=== PATIENT | female | born 1955 | race Caucasian/White ===

== ENCOUNTER 2018-07-07 15:13 | Inpatient (IN) | payer MEDICAID, OTHER ==
[~2018-07-07] VITALS: Ht 162.6 cm; Wt 91.0 kg
[~2018-07-07 15:13] MED LIST: NOCURR
[2018-07-07] MEDS ORDERED: PROP10TA72 PO (15:26)
[2018-07-07] MEDS ORDERED: PANT20TA PO (15:26)
[2018-07-07] MEDS ORDERED: INSU100C14 SQ (15:26)
[2018-07-07] MEDS ORDERED: MECL12.585 PO (15:26)
[2018-07-07] MEDS ORDERED: CITA10SO PO (15:26)
[2018-07-07] MEDS ORDERED: FERR324T4 PO (15:26)
[2018-07-07] MEDS ORDERED: VIT1TABL95 PO (15:26)
[2018-07-07 16:39] LABS: BASOPHILS % (AUTO) 0.7 % (0.0-2.0); EOSINOPHILS % (AUTO) 2.3 % (1.0-6.0); HEMATOCRIT 30.5 % (36-46); HEMOGLOBIN 10.3 g/dL (12.0-16.0); LYMPHOCYTES # (AUTO) 0.4 K/uL (1.0-4.8); LYMPHOCYTES % (AUTO) 25.3 % (22.0-44.0); MEAN CORPUSCULAR HEMOGLOBIN 31.2 pg (26.0-34.0); MEAN CORPUSCULAR HGB CONC 33.7 G/dL (31.0-37.0); MEAN CORPUSCULAR VOLUME 93 fL (80-100); MONOCYTES # (AUTO) 0.1 K/uL (0.1-1.0); NEUTROPHILS # (AUTO) 0.9 K/uL (1.8-7.7); NEUTROPHILS % (AUTO) 63.7 % (40.0-70.0); RED CELL DISTRIBUTION WIDTH 15.9 % (11.5-14.5)
[2018-07-07 16:40] LABS: ANION GAP 6 mmol/L (8-16); CALCIUM, TOTAL 8.7 mg/dL (8.8-10.5); CARBON DIOXIDE 25 mmol/L (22-29); CHLORIDE 107 mmol/L (98-107); CREATININE 0.72 mg/dL (0.60-1.30); GLOMERULAR FILTR. RATE CALC > 60 mL/min (>60); GLUCOSE,RANDOM 137 mg/dL (70-110); POTASSIUM 3.7 mmol/L (3.5-5.1); SODIUM SERUM 138 mmol/L (136-145); UREA NITROGEN, BLOOD 6 mg/dL (7-18)
[2018-07-07 16:44] LABS: ALANINE AMINOTRANSFERASE 25 U/L (12-78); ALBUMIN 2.5 g/dL (3.4-5.0); ALKALINE PHOSPHATASE 232 U/L (46-116); ASPARTATE AMINOTRANSFERASE 29 U/L (15-37); BILIRUBIN,TOTAL 2.2 mg/dL (0.1-1.0); LIPASE 179 U/L (73-393); TOTAL PROTEIN, SERUM 6.8 g/dL (6.4-8.2)
[2018-07-07 17:17] LABS: PLATELET COUNT (AUTO) 25 K/uL (150-450)
[2018-07-07 18:58] LABS: APPEARANCE,URINE CLOUDY (CLEAR); BILIRUBIN,URINE NEGATIVE (NEGATIVE); GLUCOSE, URINE (UA) NEGATIVE (NEGATIVE); KETONES,URINE NEGATIVE (NEGATIVE); LEUKOCYTE ESTERASE ,URINE LARGE (NEGATIVE); NITRATE,URINE NEGATIVE (NEGATIVE); OCCULT BLOOD,URINE LARGE (NEGATIVE); PROTEIN,URINE NEGATIVE (NEGATIVE)
[2018-07-07 19:07] LABS: BACTERIA,URINE Moderate /HPF (None Seen); SQUAMOUS EPITHELIAL CELL,UR Many /LPF (None Seen)
[2018-07-07 19:10] LABS: INR 1.6 (0.9-1.1); PROTHROMBIN TIME 16.2 SEC (9.4-11.6)
[2018-07-07] MEDS ORDERED: CefTRIAXone SODIUM 1 GM in DEXTROSE 5%-WATER 10 ML IV ONE (22:15)
[2018-07-07] MEDS ORDERED: LEVOFLOXACIN 500 MG/D5% WATER 100 ML IV ONE (22:15)
[2018-07-07] MEDS ORDERED: 0.9% SODIUM CHLORIDE 10 ML SYRINGE IVP PRN (23:00)
[2018-07-07] MEDS ORDERED: ONDANSETRON HCL 4 MG/2 ML VIAL IVP PRN ×3 (23:00→23:30)
[2018-07-07] MEDS ORDERED: ACETAMINOPHEN 325 MG TABLET PO PRN ×3 (23:00→23:30)
[2018-07-07] MEDS ORDERED: [UNRECOGNIZED DRUG - OTHER] PO SCH ×2 (23:15→23:30)
[2018-07-07] MEDS ORDERED: INSULIN LISPRO 100 UNITS/ML SQ PRN (23:15)
[2018-07-07] MEDS ORDERED: DEXTROSE 50%-WATER 25 GM/50 ML SYRINGE IVP PRN ×2 (23:15→23:30)
[2018-07-07] MEDS ORDERED: HYDROCODONE/ACETAMINOPHEN 5-325 MG TABLET PO PRN (23:15)
[2018-07-07] MEDS ORDERED: BISACODYL 10 MG RECTAL RECTAL SUPPOSITORY PR PRN ×2 (23:15→23:30)
[2018-07-07] MEDS ORDERED: MORPHINE SULFATE 2 MG/ML SYRINGE IVP PRN ×2 (23:15→23:30)
[2018-07-07] MEDS ORDERED: MAGNESIUM HYDROXIDE SUSPENSION 30 ML UDCUP PO PRN ×2 (23:15→23:30)
[2018-07-07] MEDS ORDERED: ZOLPIDEM TARTRATE 5 MG TABLET PO PRN ×2 (23:15→23:30)
[2018-07-07 23:17] VITALS: BP 128/64
[2018-07-07] MEDS: HEPARIN SODIUM,PORCINE 5,000 UNITS/ML VIAL SQ SCH (23:54)
[2018-07-08] MEDS ORDERED: HEPARIN SODIUM,PORCINE 5,000 UNITS/ML VIAL SQ SCH
[2018-07-08] MEDS ORDERED: PNEUMOCOCCAL VACCINE POLYVALENT 0.5 ML VIAL [PPSV23] IM ONE (01:45)
[2018-07-08 05:23] VITALS: BP 116/57
[2018-07-08] MEDS: HYDROCODONE/ACETAMINOPHEN 5-325 MG TABLET PO PRN ×3 (06:08→23:27)
[2018-07-08 07:03] LABS: GLUCOMETER DEV NAME(LOC) 6N 2D; GLUCOSE,POINT OF CARE 135 MG/DL (70-110)
[2018-07-08 07:30] VITALS: BP 109/65
[2018-07-08] MEDS: HEPARIN SODIUM,PORCINE 5,000 UNITS/ML VIAL SQ SCH (08:00)
[2018-07-08] MEDS: DOCUSATE SODIUM 100 MG CAPSULE PO SCH ×3 (08:00→20:25)
[2018-07-08] MEDS: CITALOPRAM HYDROBROMIDE 20 MG TABLET PO SCH (08:00)
[2018-07-08] MEDS: PANTOPRAZOLE SODIUM 40 MG DR TABLET PO SCH (08:00)
[2018-07-08] MEDS: PROPRANOLOL HCL 10 MG TABLET PO SCH ×2 (08:00→20:11)
[2018-07-08] MEDS ORDERED: FERROUS SULFATE 325 MG EC TABLET PO SCH (09:00)
[2018-07-08] MEDS ORDERED: [UNRECOGNIZED DRUG - OTHER] PO SCH (09:00)
[2018-07-08] MEDS ORDERED: MECLIZINE HCL 12.5 MG TABLET PO SCH ×2 (09:00)
[2018-07-08] MEDS ORDERED: PROPRANOLOL HCL 10 MG TABLET PO SCH (09:00)
[2018-07-08] MEDS ORDERED: [UNRECOGNIZED DRUG - OTHER] PO SCH ×2 (09:00)
[2018-07-08] MEDS ORDERED: PANTOPRAZOLE SODIUM 40 MG DR TABLET PO SCH (09:00)
[2018-07-08] MEDS ORDERED: DOCUSATE SODIUM 100 MG CAPSULE PO SCH (09:00)
[2018-07-08 11:15] VITALS: BP 106/66
[2018-07-08] MEDS: INSULIN LISPRO 100 UNITS/ML SQ PRN ×3 (11:46→20:21)
[2018-07-08 15:37] VITALS: BP 117/65
[2018-07-08 17:59] LABS: GLUCOMETER DEV NAME(LOC) 6N 1E; GLUCOSE,POINT OF CARE 143 MG/DL (70-110)
[2018-07-08 19:34] LABS: GLUCOMETER DEV NAME(LOC) 6N 2D; GLUCOSE,POINT OF CARE 231 MG/DL (70-110)
[2018-07-08] MEDS ORDERED: CITA-106 PO (19:44)
[2018-07-08] MEDS ORDERED: PANT40TA25 PO (19:44)
[2018-07-08] MEDS ORDERED: MECL-111 PO (19:44)
[2018-07-08 20:00] VITALS: BP 110/61
[2018-07-08] MEDS: CefTRIAXone SODIUM 1 GM in DEXTROSE 5%-WATER 10 ML IV SCH (21:23)
[2018-07-08 21:33] LABS: GLUCOMETER DEV NAME(LOC) 6N 1E; GLUCOSE,POINT OF CARE 169 MG/DL (70-110)
[2018-07-08 23:20] VITALS: BP 116/71
[2018-07-09 04:44] VITALS: BP 113/57
[2018-07-09] MEDS: HYDROCODONE/ACETAMINOPHEN 5-325 MG TABLET PO PRN ×2 (05:25→20:40)
[2018-07-09] MEDS: INSULIN LISPRO 100 UNITS/ML SQ PRN ×3 (05:36→17:27)
[2018-07-09 06:34] LABS: GLUCOMETER DEV NAME(LOC) 6N 1E; GLUCOSE,POINT OF CARE 166 MG/DL (70-110)
[2018-07-09 07:11] LABS: ANION GAP 5 mmol/L (8-16); CALCIUM, TOTAL 8.1 mg/dL (8.8-10.5); CARBON DIOXIDE 26 mmol/L (22-29); CHLORIDE 107 mmol/L (98-107); CREATININE 0.73 mg/dL (0.60-1.30); GLOMERULAR FILTR. RATE CALC > 60 mL/min (>60); GLUCOSE,RANDOM 171 mg/dL (70-110); POTASSIUM 4.2 mmol/L (3.5-5.1); SODIUM SERUM 138 mmol/L (136-145); UREA NITROGEN, BLOOD 10 mg/dL (7-18)
[2018-07-09 07:23] LABS: HEMATOCRIT 29.4 % (36-46); LYMPHOCYTES # (AUTO) 0.3 K/uL (1.0-4.8); MEAN CORPUSCULAR HEMOGLOBIN 31.7 pg (26.0-34.0); MEAN CORPUSCULAR HGB CONC 33.8 G/dL (31.0-37.0); MEAN CORPUSCULAR VOLUME 94 fL (80-100); MONOCYTES # (AUTO) 0.1 K/uL (0.1-1.0); MONOCYTES % (AUTO) 8.1 % (2.0-9.0); NEUTROPHILS # (AUTO) 0.8 K/uL (1.8-7.7); NEUTROPHILS % (AUTO) 61.9 % (40.0-70.0); RED BLOOD CELL COUNT(AUTO) 3.14 MIL/uL (4.00-5.20); RED CELL DISTRIBUTION WIDTH 15.7 % (11.5-14.5)
[2018-07-09 07:34] VITALS: BP 98/55
[2018-07-09 08:11] LABS: PLATELET COUNT (AUTO) 23 K/uL (150-450)
[2018-07-09] MEDS: CHOLECALCIFEROL (VIT D3) 5,000 UNITS CAPSULE PO SCH (09:32)
[2018-07-09] MEDS: CITALOPRAM HYDROBROMIDE 20 MG TABLET PO SCH (09:32)
[2018-07-09] MEDS: FERROUS SULFATE 325 MG EC TABLET PO SCH (09:32)
[2018-07-09] MEDS: DOCUSATE SODIUM 100 MG CAPSULE PO SCH ×2 (09:32→20:40)
[2018-07-09] MEDS: PROPRANOLOL HCL 10 MG TABLET PO SCH ×2 (09:32→20:41)
[2018-07-09] MEDS: PANTOPRAZOLE SODIUM 40 MG DR TABLET PO SCH (09:32)
[2018-07-09 11:56] VITALS: BP 114/78
[2018-07-09 12:14] LABS: GLUCOMETER DEV NAME(LOC) 6N 1E; GLUCOSE,POINT OF CARE 151 MG/DL (70-110)
[2018-07-09 15:29] VITALS: BP 92/51
[2018-07-09 17:49] LABS: GLUCOMETER DEV NAME(LOC) 6N 2D; GLUCOSE,POINT OF CARE 177 MG/DL (70-110)
[2018-07-09 19:39] VITALS: BP 108/51
[2018-07-09] MEDS: CefTRIAXone SODIUM 1 GM in DEXTROSE 5%-WATER 10 ML IV SCH (22:02)
[2018-07-09 23:56] VITALS: BP 97/48
[2018-07-10] VITALS (7 sets, daily range): BP systolic 102–107; BP diastolic 42–58
[2018-07-10 00:24] LABS: GLUCOMETER DEV NAME(LOC) 6N 1E; GLUCOSE,POINT OF CARE 128 MG/DL (70-110)
[2018-07-10 07:15] LABS: GLUCOMETER DEV NAME(LOC) 6N 1E; GLUCOSE,POINT OF CARE 123 MG/DL (70-110)
[2018-07-10 07:27] LABS: BASOPHILS % (AUTO) 0.7 % (0.0-2.0); EOSINOPHILS % (AUTO) 2.7 % (1.0-6.0); HEMATOCRIT 30.5 % (36-46); HEMOGLOBIN 10.3 g/dL (12.0-16.0); LYMPHOCYTES # (AUTO) 0.3 K/uL (1.0-4.8); MEAN CORPUSCULAR HEMOGLOBIN 31.5 pg (26.0-34.0); MEAN CORPUSCULAR HGB CONC 33.9 G/dL (31.0-37.0); MEAN CORPUSCULAR VOLUME 93 fL (80-100); MONOCYTES # (AUTO) 0.1 K/uL (0.1-1.0); MONOCYTES % (AUTO) 7.6 % (2.0-9.0); NEUTROPHILS # (AUTO) 0.7 K/uL (1.8-7.7); PLATELET COUNT (AUTO) 26 K/uL (150-450); RED BLOOD CELL COUNT(AUTO) 3.27 MIL/uL (4.00-5.20); RED CELL DISTRIBUTION WIDTH 15.7 % (11.5-14.5)
[2018-07-10 07:45] LABS: ANION GAP 7 mmol/L (8-16); CALCIUM, TOTAL 8.3 mg/dL (8.8-10.5); CARBON DIOXIDE 25 mmol/L (22-29); CHLORIDE 107 mmol/L (98-107); CREATININE 0.64 mg/dL (0.60-1.30); GLOMERULAR FILTR. RATE CALC > 60 mL/min (>60); GLUCOSE,RANDOM 130 mg/dL (70-110); POTASSIUM 4.1 mmol/L (3.5-5.1); SODIUM SERUM 139 mmol/L (136-145); UREA NITROGEN, BLOOD 11 mg/dL (7-18)
[2018-07-10] MEDS: FERROUS SULFATE 325 MG EC TABLET PO SCH (08:00)
[2018-07-10] MEDS: PROPRANOLOL HCL 10 MG TABLET PO SCH ×2 (09:00→21:00)
[2018-07-10] MEDS ORDERED: SODIUM CHLORIDE 0.9% 500 ML IV ONE (12:21)
[2018-07-10] MEDS: DOCUSATE SODIUM 100 MG CAPSULE PO SCH ×2 (15:01→21:07)
[2018-07-10] MEDS: CITALOPRAM HYDROBROMIDE 20 MG TABLET PO SCH (15:02)
[2018-07-10] MEDS: CHOLECALCIFEROL (VIT D3) 5,000 UNITS CAPSULE PO SCH (15:02)
[2018-07-10] MEDS: PANTOPRAZOLE SODIUM 40 MG DR TABLET PO SCH (15:02)
[2018-07-10] MEDS: INSULIN LISPRO 100 UNITS/ML SQ PRN (17:19)
[2018-07-10] MEDS: HYDROCODONE/ACETAMINOPHEN 5-325 MG TABLET PO PRN (21:10)
[2018-07-10] MEDS: CefTRIAXone SODIUM 1 GM in DEXTROSE 5%-WATER 10 ML IV SCH (22:17)
[2018-07-11] VITALS (8 sets, daily range): BP systolic 96–116; BP diastolic 46–64
[2018-07-11] MEDS: PANTOPRAZOLE SODIUM 40 MG DR TABLET PO SCH ×2 (08:25→08:34)
[2018-07-11] MEDS: PROPRANOLOL HCL 10 MG TABLET PO SCH (08:25)
[2018-07-11] MEDS: DOCUSATE SODIUM 100 MG CAPSULE PO SCH ×2 (08:26→08:31)
[2018-07-11] MEDS: FERROUS SULFATE 325 MG EC TABLET PO SCH (08:31)
[2018-07-11] MEDS: HYDROCODONE/ACETAMINOPHEN 5-325 MG TABLET PO PRN (08:31)
[2018-07-11] MEDS: CITALOPRAM HYDROBROMIDE 20 MG TABLET PO SCH (08:31)
[2018-07-11] MEDS: CHOLECALCIFEROL (VIT D3) 5,000 UNITS CAPSULE PO SCH (08:31)
[2018-07-11 09:00] LABS: BASOPHILS % (AUTO) 0.9 % (0.0-2.0); EOSINOPHILS % (AUTO) 2.3 % (1.0-6.0); HEMATOCRIT 31.4 % (36-46); HEMOGLOBIN 10.6 g/dL (12.0-16.0); LYMPHOCYTES # (AUTO) 0.4 K/uL (1.0-4.8); LYMPHOCYTES % (AUTO) 30.7 % (22.0-44.0); MEAN CORPUSCULAR HEMOGLOBIN 31.6 pg (26.0-34.0); MEAN CORPUSCULAR HGB CONC 33.8 G/dL (31.0-37.0); MEAN CORPUSCULAR VOLUME 93 fL (80-100); MONOCYTES # (AUTO) 0.1 K/uL (0.1-1.0); MONOCYTES % (AUTO) 5.9 % (2.0-9.0); NEUTROPHILS # (AUTO) 0.8 K/uL (1.8-7.7); NEUTROPHILS % (AUTO) 60.2 % (40.0-70.0); PLATELET COUNT (AUTO) 26 K/uL (150-450); RED BLOOD CELL COUNT(AUTO) 3.36 MIL/uL (4.00-5.20); RED CELL DISTRIBUTION WIDTH 15.6 % (11.5-14.5)
[2018-07-11 09:21] LABS: INR 1.5 (0.9-1.1); PROTHROMBIN TIME 15.7 SEC (9.4-11.6)
== END 2018-07-11 15:00 | disposition home or self-care (01) | DRG 280 ==
LOC: EMS 15:15 → 6N 22:00 → EMS 22:58 → 4E 07-10 07:30
PROVIDERS: ADMIT Internal Medicine; ATTEND Internal Medicine
PROC: 30233R1 Transfusion of Nonautologous Platelets into Peripheral Vein, Percutaneous Approach (ICD-10-PCS; principal; 2018-07-11)
DX: K70.31 Alcoholic cirrhosis of liver with ascites (principal); D61.818 Other pancytopenia; D68.9 Coagulation defect, unspecified; D69.59 Other secondary thrombocytopenia; D69.6 Thrombocytopenia, unspecified; E11.9 Type 2 diabetes mellitus without complications; M54.9 Dorsalgia, unspecified; N39.0 Urinary tract infection, site not specified; E66.9 Obesity, unspecified; Z90.710 Acquired absence of both cervix and uterus
CPT/HCPCS: 76700; 76705; 85049; 86900; 86901; 87086; 93005; 96365; 99285; G0480; J0696; J1644; J2270; J2405; J7040; J7060; P9035

== ENCOUNTER 2018-09-03 10:51 | Emergency (ER) | payer MEDICAID, OTHER, SELFPAY ==
[~2018-09-03] VITALS: Ht 162.6 cm; Wt 84.1 kg
[~2018-09-03 10:51] MED LIST changes: +CITA-106 PO; +INSU100C14 SQ; -NOCURR; +PANT40TA25 PO; +PROP10TA72 PO; +VIT1TABL95 PO
[2018-09-03 11:04] LABS: GLUCOSE,POINT OF CARE 323 MG/DL (70-110)
[2018-09-03] MEDS ORDERED: HYDROCODONE/ACETAMINOPHEN 5-325 MG TABLET PO ONE (13:15)
[2018-09-03] MEDS ORDERED: INSULIN REGULAR, HUMAN 100 UNITS/ML SQ ONE (13:30)
[2018-09-03 14:46] VITALS: BP 105/45
== END 2018-09-03 15:12 | disposition home or self-care (01) ==
LOC: EMS 10:52
DX: S82.62XA Displaced fracture of lateral malleolus of left fibula, initial encounter for closed fracture (principal); S50.811A Abrasion of right forearm, initial encounter; E11.65 Type 2 diabetes mellitus with hyperglycemia; Z90.710 Acquired absence of both cervix and uterus; Z79.4 Long term (current) use of insulin; W10.9XXA Fall (on) (from) unspecified stairs and steps, initial encounter; Y93.01 Activity, walking, marching and hiking; Y92.89 Other specified places as the place of occurrence of the external cause; Y99.8 Other external cause status
CPT/HCPCS: 29515; 70450; 73590; 73610; 82962; 96372; 99284; J1815